=== PATIENT | female | born 1960 | race Caucasian/White ===

== ENCOUNTER 2019-01-11 20:16 | Emergency (ER) | payer OTHER ==
[~2019-01-11] VITALS: Ht 157.5 cm; Wt 77.1 kg
[2019-01-11] MEDS ORDERED: EVAMIST8.1 ML (20:29)
[2019-01-11] MEDS ORDERED: PROZAC40 MG (20:29)
[2019-01-11] MEDS ORDERED: LAMICTAL25 M1 (20:29)
== END 2019-01-11 23:00 | disposition home or self-care (01) ==
LOC: ER 20:16
DX: K52.89 Other specified noninfective gastroenteritis and colitis (principal)